=== PATIENT | male | born 2000 | race American Indian/Alaskan Native ===

== ENCOUNTER 2019-08-10 10:54 | Emergency (ER) | payer SELFPAY ==
[2019-08-10] MEDS ORDERED: diphenhydrAMINE 50 MG/ML VIAL IM ONE (11:20)
[2019-08-10] MEDS ORDERED: ZIPRASIDONE MESYLATE 20 MG VIAL IM ONE (11:20)
[2019-08-10] MEDS ORDERED: WATER FOR INJ Sterile (PF) 10 ML ONE (11:23)
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
[2019-08-10 12:18] LABS: Amorphous Crystals,Urine Few; Bilirubin,Urine NEG (Negative); Blood,Urine NEG (Negative); Color,Urine Yellow (Yellow); Mucus,Urine 3+ /HPF
[2019-08-10 12:29] LABS: Basophils # (Auto) 0.1 K/mm3 (0.0-0.1); Basophils % (Auto) 0.9 % (0.0-1.8); Eosinophils % (Auto) 0.1 % (0.0-4.3); Hematocrit 41.1 % (35.5-45.6); Hemoglobin 13.8 gm/dl (11.8-15.2); Lymphocytes % (Auto) 16.8 % (13.4-35.0); Mean Corpuscular HGB Conc 34 % (32-34); Mean Corpuscular Volume 88 fl (84-94); Monocytes # (Auto) 0.6 K/mm3 (0.0-0.8); Platelet Count 225 K/mm3 (140-440); Red Blood Count 4.67 M/mm3 (3.65-5.03); Red Cell Distribution Width 14.7 % (13.2-15.2)
[2019-08-10 12:57] LABS: BUN/Creatinine Ratio 12; Blood Urea Nitrogen 12 mg/dL (9-20); Calcium 9.8 mg/dL (8.4-10.2); Hemolysis Index 6
[2019-08-10 12:58] LABS: Amphetamine Screen,Urine PRESUMPTIVE NEGATIVE; Benzodiazepines Screen,Urine PRESUMPTIVE NEGATIVE; Cocaine Screen,Urine PRESUMPTIVE NEGATIVE; Methadone Screen,Urine PRESUMPTIVE NEGATIVE; Opiate Screen,Urine PRESUMPTIVE NEGATIVE
[2019-08-10 13:29] LABS: Cannabinoid Screen,Urine PRESUMPTIVE POSITIVE
--- NOTE | 2019-08-10 13:49 | Cat Scan Report ---
CT HEAD WITHOUT CONTRAST INDICATION / CLINICAL INFORMATION: new onset psychosis, paranoia. TECHNIQUE: All CT scans at this location are performed using CT dose reduction for ALARA by means of automated e xposure control. COMPARISON: None available. FINDINGS: HEMORRHAGE: No evidence of intracranial hemorrhage or extra-axial fluid collection. EXTRA-AXIAL SPACES: Cortical sulci, sylvian fissures and basilar cisterns have an unremarkable appear ance. VENTRICULAR SYSTEM: The ventricular system is of normal size and configuration. CEREBRAL PARENCHYMA: No areas of abnormal brain parenchymal attenuation are identified. There is no i ndication of recent infarction. MIDLINE SHIFT OR HERNIATION: There is no mass effect. CEREBELLUM / BRAINSTEM: Brainstem and cerebellum have an unremarkable appearance. INTRACRANIAL VESSELS:No abnormalities are identified on this noncontrast head CT. ORBITS: visualized portions of the orbits have an unremarkable appearance. SOFT TISSUES of HEAD: No significant abnormality. CALVARIUM: Evaluation of bone windows reveals no abnormalities. PARANASAL SINUSES / MASTOID AIR CELLS: Partial opacification of ethmoid sinuses. ADDITIONAL FINDINGS: None. IMPRESSION: 1. No acute intracranial abnormality. 2. Mild ethmoid sinusitis. Signer Name: Benji Rendon MD Signed: 08/10/2019 1:44 PM Workstation Name: [id number]
[2019-08-10] MEDS ORDERED: SODIUM CHLORIDE 0.9% 1000 ML 1,000 ML IV ONE ×2 (14:31→14:32)
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
[2019-08-11] MEDS ORDERED: LORazepam 2 MG/ML VIAL IM PRN (11:43)
[2019-08-11] MEDS ORDERED: HALOPERIDOL LACTATE 5 MG/1 ML INJ IM PRN (11:43)
--- NOTE | 2019-08-12 09:48 | Progress Note ---
Subjective - Reason for Consult Consult date: 08/12/19 Reason for consult: Psych eval - Chief Complaint Chief complaint: The patient continues to be very paranoid, disorganized but compliant with medications and not aggressive. No suicidal or homicidal statements or gestures. Mental Status Exam Orientation: person Affect: anxious, agitated Mood: congruent with affect, anxious Thought content: delusions, paranoia Thought Process: Disorganized Perceptions: auditory Speech: paucity Concentration: distractible, unable to pay attention Motor activity: restless Level of consciousness: alert Memory: Intact Sleep Symptoms: Difficulty Falling Asleep Assessment and Plan - Psychiatric problem (1) Unspecified psychosis Current Visit: Yes Status: Acute (2) Cannabis use disorder, severe, dependence Current Visit: Yes Status: Acute plan to address problem: RECOMMENDATIONS MEDICATIONS: Will start Olanzapine 5mg bid 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 Please contact with any questions and/or concerns. Mental Status Exam - Vital signs Last Vital Signs Temp 98.3 F 08/12/19 08:15 Pulse 55 L 08/12/19 08:15 Resp 20 08/12/19 08:15 BP 119/79 08/12/19 08:15 Pulse Ox 99 08/12/19 08:15 Assessment and Plan - Patient Problems (1) Unspecified psychosis Current Visit: Yes Status: Acute (2) Cannabis use disorder, severe, dependence Current Visit: Yes Status: Acute
[2019-08-13 07:30] VITALS: BP 132/71
== END 2019-08-13 11:31 ==
LOC: ED 10:54 → EEVIPCON 10:54 → ED 08-13 11:31
DX: F29 Unspecified psychosis not due to a substance or known physiological condition (principal); F12.20 Cannabis dependence, uncomplicated; Z00.8 Encounter for other general examination; Z79.899 Other long term (current) drug therapy
CPT/HCPCS: 36415; 70450; 80048; 80307; 81001; 82550; 85025; 96372; 99285; J1200; J3486; J7030; 80320; G0480